=== PATIENT | male | born 1960 | race Caucasian/White ===

== ENCOUNTER 2018-11-13 13:47 | Emergency (ER) | payer OTHER ==
[~2018-11-13] VITALS: Ht 193 cm; Wt 104.3 kg
[2018-11-13] MEDS ORDERED: OMEPRAZOLE10 MG PO (14:00)
[2018-11-13] MEDS ORDERED: FISH OIL 1,001000 M2 PO (14:01)
[2018-11-13] MEDS ORDERED: AMOXICILLIN 50500 MG PO (14:01)
[2018-11-13] MEDS ORDERED: ASPIR 8181 MG PO (14:01)
[2018-11-13] MEDS ORDERED: CENTRUM SILVER1 EAC2 PO (14:01)
[2018-11-13] MEDS ORDERED: IBUPROFEN 800800 M1 PO (15:09)
[2018-11-13 15:24] VITALS: BP 133/77
== END 2018-11-13 15:25 | disposition home or self-care (01) ==
LOC: M.ERS 13:47
DX: S93.401A Sprain of unspecified ligament of right ankle, initial encounter (principal); I48.91 Unspecified atrial fibrillation; K21.9 Gastro-esophageal reflux disease without esophagitis; W18.49XA Other slipping, tripping and stumbling without falling, initial encounter; Y93.89 Activity, other specified; Y92.89 Other specified places as the place of occurrence of the external cause; Y99.8 Other external cause status